=== PATIENT | female | born 1995 ===

== ENCOUNTER → 2018-05-17 | Outpatient (CLI) | payer BC ==
[~2018-05-17] MED LIST: NORG1TAB74 PO; SERT-181 PO; TRIA10.8
[2018-05-17 10:51] LABS: PLATELET COUNT, AUTOMATED 292 K/uL (150-450)
[2018-05-17 11:04] LABS: LDL CHOLESTEROL 118 mg/dl
== END ==
LOC: LAB 10:33
PROVIDERS: ATTEND Nurse Practitioner Family
DX: E28.2 Polycystic ovarian syndrome (principal); R63.5 Abnormal weight gain; G47.19 Other hypersomnia; R03.0 Elevated blood-pressure reading, without diagnosis of hypertension
CPT/HCPCS: 36415; 82040; 82247; 82310; 82374; 82435; 82465; 82565; 82947; 83718; 84075; 84132; 84155; 84295; 84443; 84450; 84460; 84478; 84520; 85025